=== PATIENT | female | born 1985 | race Caucasian/White ===

== ENCOUNTER 2020-06-04 06:47 | Emergency (ER) | payer OTHER ==
[~2020-06-04] VITALS: Ht 167.6 cm; Wt 90.7 kg
[2020-06-04] MEDS ORDERED: PEPCID AC20 MG PO (11:59)
[2020-06-04] MEDS ORDERED: TAMS0.4C PO (11:59)
[2020-06-04] MEDS ORDERED: KETO10TA2 PO (11:59)
== END 2020-06-04 14:19 | disposition home or self-care (01) ==
LOC: ER 06:47
DX: R10.11 Right upper quadrant pain (principal); R10.31 Right lower quadrant pain